=== PATIENT | male | born 1950 | race Caucasian/White ===

== ENCOUNTER 2024-09-16 15:59 | Inpatient (IN) | payer OTHER, SELFPAY ==
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
--- OUTSIDE RECORDS SUMMARY | 2024-09-16 16:08 | XMS_ITS | Clinical Summary ---
Author Organization [facility] Address [address] [place] [address] Care Team Providers Care Garment Form Assembler Name Role Phone No, Pcp PRESS MAINTAINER Primary Care Provider Unavailabl e Social History Tobacco Use Types Packs/Day Years Used Date Smoking Tobacco: Never Assessed Sex and Gender Information Value Date Recorded Sex Assigned at Not on file Legal Sex Male 11:33 AM EST Gender Identity Not on file Sexual Orientation Not on file Plan of Treatment Health Maintenance Due Date Last Done Comments Colorectal Cancer: COLONOSCO PY Screening every 10 yrs (or Modifier) 1950 Depression: Screening Annual ly using PHQ-2/9 in Adults 18 yrs or above (or HM Modifier)([facility]) 1970 Hepatitis C Virus Infection in Adolescents and Adults: Screening (or Modifier) ([facility]) 1970 [facility] Screening Reminder: Daphne sepulveda for all adults ([facility]) 1970 Tobacco Smoking Cessation: i n Adults excluding Women: Behavioral and Pharmacotherapy Interventions ([facility]) 1970 DTaP/Tdap/Td Vaccines ([facility]) (1 - Tdap) 05/03/1971 Colorectal Cancer Screening 45 -75 Yrs (or HM Modifier ) 1997 Colorectal Cancer: FLEXIBLE SIGMOIDOSCOPY Screening every 5 yrs 1997 Colorectal Cancer: Fecal Imm unochemical Test (FIT) Annually [facility] 1997 Colorectal Cancer: High-sens itivity gFOBT Screening Annually [facility] 1997 Colorectal Cancer: Stool Col oguard Screening every 3 yrs 1997 Colorectal Cancer:CT Colonography Screening every 5 yr s 1997 Pneumococcal Vaccination Scr eening: Patients 50+ yrs of age ([facility]) (1 of 1 - PCV) 2002 Zoster/Shingles Vaccine Seri es Screening: Adults aged 18+ yrs (or HM Modifiers)([facility]) (1 of 2) 2002 COVID-19 Vaccine Screening: Initial Series and Booster Status ([facility]) (2023- season) 2023 Flu Vaccination: Ages 65+: Y early High Dose Recommended (or Modifier)([facility]) 09/30/2024 RSV Vaccines (1 - 1-dose 75+ series) 05/03/2027 Medical Devices Not on file Care Teams Garment Form Assembler Relationship Specialty Start Date End Date No, Pcp, PRESS MAINTAINER N/A Do not use PCP - General Family Medicine 03/08/20
[2024-09-16 16:46] VITALS: BP 133/92; PULSE 76; RESP 16; TEMP 2.4; TEMP 36.4; O2SAT 94
[2024-09-16 16:53] VITALS: BMI 34.8
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
[2024-09-16 20:00] VITALS: BP 118/65; PULSE 76; RESP 18; TEMP 36.2; O2SAT 93
--- NOTE | 2024-09-16 23:14 | PC.NURSE ---
Pt declined HS medication, Edwar Skaggs ELECTRIC MOTOR CONTROL ASSEMBLER, notified. Offered and acceptyed Librium 25 mg at 11:15.
[2024-09-17] VITALS (7 sets, daily range): BP systolic 93–154; BP diastolic 52–80; PULSE 68–84; RESP 17–18; TEMP 36.5–36.6; O2SAT 92–96
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
[2024-09-17] MEDS: Metoprolol Succinate ER 25 MG TAB.ER.24H PO (12:40)
[2024-09-17] MEDS: Potassium Chloride ER 10 MEQ TABLET.ER PO (12:42)
[2024-09-18 07:55] VITALS: BP 114/62; PULSE 66; RESP 18; TEMP 37; O2SAT 95
[2024-09-18] MEDS: Potassium Chloride ER 10 MEQ TABLET.ER PO (08:14)
[2024-09-18] MEDS: Fluticasone/Vilanterol 200/25 BLST.W.DEV 1 PUFF INHALE (08:14)
[2024-09-18] MEDS: Metoprolol Succinate ER 25 MG TAB.ER.24H PO (08:14)
[2024-09-18] MEDS: Tiotropium Bromide 2.5 mcg 1 PUFF/2.5 MCG MIST.INHAL 2 PUFF INHALE (08:15)
[2024-09-18 12:39] LABS: Hemoglobin A1C 150.5159 umol/L; Total Hemoglobin (HGBA1C) 3814.3534 umol/L
[2024-09-18 12:54] LABS: Alanine Aminotransferase 43 U/L (0-40); Albumin Level 4.6 g/dL (3.5-5.0); Alkaline Phosphatase 85 U/L (39-117); Anion Gap 14 (12-20); Aspartate Amino Transferase 56 U/L (5-37); Blood Urea Nitrogen 21 mg/dL (9-16); Calcium 9.1 mg/dL (8.4-10.2); Carbon Dioxide 26 mmol/L (22-29); Chloride 107 mmol/L (96-108); Cholesterol 133 mg/dL (<200); Creatinine Clr Calc Pharmacy 81.6; Estimated Glomerular Filt Rate > 60; HDL Cholesterol 39 mg/dL (>40); Potassium 4.2 mmol/L (3.3-5.1); Sodium 143 mmol/L (135-145); Total Protein 6.9 g/dL (6.5-8.0); Triglycerides 131 mg/dL (<150)
[2024-09-18 13:08] LABS: Free T4 (Free Thyroxine) 1.11 ng/dL (0.71-1.85); Thyroid Stimulating Hormone 2.21 uIU/mL (0.32-4.0)
[2024-09-18] MEDS: Magnesium Hydrox/Alum Hydrox 30 ML ORAL.SUSP PO (13:17)
--- NOTE | 2024-09-18 13:29 | P.PNPSI_ITS ---
Subjective Subjective Date of Service: 09/18/24 Reason For Visit: F03.918 Unspecified dementia, unspecified severity Subjective Notes: Conditional Voluntary and 3 Day Healthcare Proxy: No Guardianship: No Medical Problems Affecting Mental Status: No Interim History: Pt seen, discussed with team. Calmer today, team reports a better day overall. When he awoke this a.m. he did have sx of confusion and did attempt to exit seek, however, responded to the team and their support. Pt is accepting medications and did agree to labs today. He is supported by by phone today. Confusion is still present-pt asking to leave today. Team report no behavioral dyscontrol and no symptoms of alcohol withdrawal noted. Medication Compliance: Yes Side effects from medications: No Attending Groups: Intermittent Review of Systems Acute medical concerns: No Review of Systems Review of Systems Denies Yes Unobtainable due to mental status Mental Status Exam Mental Status Exam Patient Appearance: Appropriate Patient Orientation: Person Level of Consciousness: Disoriented and Alert Patient Behavior: Talkative, Anxious, Fatigued, Distractible, Confused, Isolative and Good Eye Contact Mood Description: Constricted Affect Description: Constricted Patient Cognition Impaired: Yes Ability to Follow Directions: Fair Speech Pattern: Spontaneous Speech Memory Description: Remote Impaired, Recent Impaired and Working Impaired Hallucinations: None Delusions: Present (less intense) Thought Process: Disoriented, Illogical, Distracted and Confusion Thought Content: positive for Disoriented, positive for Circumstantial, positive for Poverty of Content, positive for Preoccupation, positive for Slowed Thinking, positive for Tangential, positive for Disorganized and positive for Suicidal Ideation (today, pt denies SI) Depressive Symptoms: Unhappiness, Thoughts of /Suicide (denies today), Loss of Energy and Difficulty Concentrating Abnormal Motor Activity Signs and Symptoms: Agitation and Restlessness Judgement: Poor Diagnostics Vital Signs (24Hr): Vital Signs - 24 hr 09/17/24 20:20 09/17/24 20:31 09/18/24 07:55 Temperature 97.9 F 98.6 F Pulse Rate 71 66 Respiratory Rate 17 18 Blood Pressure 93/52 L 93/52 L 114/62 Pulse Oximetry 92 95 Oxygen Delivery Method Room Air Room Air BMI result Body Mass Index 34.8 Labs 09/18/24 12:26 Labs: Laboratory Results - last 48 hr 09/18/24 12:26 Sodium 143 Potassium 4.2 Chloride 107 Carbon Dioxide 26 Anion Gap 14 BUN 21 H Creatinine 1.14 Estim Creat Clear Calc 81.6 Estimated GFR > 60 Random Glucose 124 H Estimat Average Glucose 120 Hemoglobin A1c % 5.8 Calcium 9.1 Total Bilirubin 0.9 AST 56 H ALT 43 H Alkaline Phosphatase 85 Total Protein 6.9 Albumin 4.6 Triglycerides 131 Cholesterol 133 LDL Cholesterol, Calc 68 HDL Cholesterol 39 L TSH 2.21 Free T4 1.11 Medications Medications Current Medications Acetaminophen (Acetaminophen 325 Mg Tablet) 650 mg PO Q6H PRN PRN Reason: Headache/Pain, Scale 1-10 Al Hydroxide/Mg Hydroxide (Magnesium Hydrox/Alum Hydrox 30 Ml Oral.Susp) 30 ml PO Q6H PRN PRN Reason: Heartburn/Nausea Last Admin: 09/18/24 13:17 Dose: 30 ml Albuterol Sulfate (Albuterol Sulfate 90 Mcg 8 Gm Inhaler) 2 puff INHALE Q6H PRN PRN Reason: Wheezing Aspirin (Aspirin 81 Mg Tab.Chew) 81 mg PO DAILY [facility] Last Admin: 09/18/24 08:14 Dose: 81 mg Atorvastatin Calcium (Atorvastatin Calcium 80 Mg Tablet) 80 mg PO DAILY [facility] Last Admin: 09/18/24 08:13 Dose: 80 mg Chlordiazepoxide HCl (Chlordiazepoxide Hcl 25 Mg Capsule) 25 mg PO QID PRN PRN Reason: For Alcohol W/D Last Admin: 09/17/24 12:37 Dose: 25 mg Doxazosin Mesylate (Doxazosin Mesylate 2 Mg Tablet) 2 mg PO BEDTIME [facility] Last Admin: 09/17/24 20:31 Dose: Not Given Ezetimibe (Ezetimibe 10 Mg Tablet) 10 mg PO DAILY [facility] Last Admin: 09/18/24 08:21 Dose: 10 mg Fluticasone/Vilanterol (Fluticasone/Vilanterol 200/25 Blst.W.Dev) 1 puff INHALE RDAILY [facility] Last Admin: 09/18/24 08:14 Dose: 1 puff Folic Acid (Folic Acid 1 Mg Tablet) 1 mg PO DAILY [facility] Last Admin: 09/18/24 08:14 Dose: 1 mg Furosemide (Furosemide 40 Mg Tablet) 40 mg PO DAILY [facility]; Protocol Last Admin: 09/18/24 08:14 Dose: 40 mg Hydroxyzine HCl (Hydroxyzine Hcl 25 Mg Tablet) 25 mg PO Q6H PRN PRN Reason: mild anxiety Isosorbide Mononitrate (Isosorbide Mononitrate 30 Mg Tab.Er.24h) 30 mg PO DAILY [facility]; Protocol Last Admin: 09/18/24 08:13 Dose: 30 mg Levothyroxine Sodium (Levothyroxine Sodium 175 Mcg Tablet) 175 mcg PO DAILY@0600 [facility] Last Admin: 09/18/24 04:55 Dose: 175 mcg Lidocaine (Lidocaine 4 % Patch Adh..Patch) 1 patch TRANSDERMA DAILY PRN PRN Reason: Pain Magnesium Hydroxide (Milk Of Magnesia 30 Ml Oral.Susp) 30 ml PO DAILY PRN PRN Reason: Constipation Metoprolol Succinate (Metoprolol Succinate Er 25 Mg Tab.Er.24h) 25 mg PO DAILY [facility]; Protocol Last Admin: 09/18/24 08:14 Dose: 25 mg Montelukast Sodium (Montelukast Sodium 10 Mg Tablet) 10 mg PO BEDTIME [facility] Last Admin: 09/17/24 20:26 Dose: 10 mg Multivitamins/Vitamin C (Multivitamin Tablet) 1 tab PO DAILY [facility] Last Admin: 09/18/24 08:14 Dose: 1 tab Naproxen (Naproxen 500 Mg Tablet) 500 mg PO BID [facility] Last Admin: 09/18/24 08:14 Dose: 500 mg Olanzapine (Olanzapine 5 Mg Tablet) 5 mg PO BID PRN PRN Reason: agitation Omeprazole (Omeprazole 20 Mg Capsule.Dr) 20 mg PO DAILY@0630 [facility] Last Admin: 09/18/24 05:53 Dose: 20 mg Potassium Chloride (Potassium Chloride Er 10 Meq Tablet.Er) 10 meq PO DAILY [facility] Last Admin: 09/18/24 08:14 Dose: 10 meq Ranolazine (Ranolazine 500 Mg Tab.Er.12h) 500 mg PO BID [facility] Last Admin: 09/18/24 08:14 Dose: 500 mg Thiamine HCl (Thiamine Hcl 100 Mg Tablet) 100 mg PO DAILY [facility] Last Admin: 09/18/24 08:13 Dose: 100 mg Tiotropium [place] [facility] (Tiotropium [place] [facility] 2.5 Mcg 1 Puff/2.5 Mcg Mist.Inhal) 2 puff INHALE RDAILY [facility] Last Admin: 09/18/24 08:15 Dose: 2 puff Trazodone HCl (Trazodone Hcl 50 Mg Tablet) 50 mg PO BEDTIME [facility] PRN PRN Reason: Insomnia Last Admin: 09/17/24 20:26 Dose: 50 mg Vitamin D (Cholecalciferol (Vitamin D3) 25 Mcg Tablet) 25 mcg PO DAILY [facility] Last Admin: 09/18/24 08:14 Dose: 25 mcg Allergies Allergies Allergy/AdvReac Type Severity Reaction Status Date / Time lisinopril Allergy Unknown Verified 09/16/24 17:09 lorazepam Allergy Unknown Verified 09/16/24 17:09 Penicillins Allergy Unknown Verified 09/16/24 17:09 tizanidine Allergy Unknown Verified 09/16/24 17:09 Assessment & Plan Assessment & Plan (1) Lewy body dementia: Status: Acute Code(s): G31.83 - Neurocognitive disorder with Lewy bodies; F02.80 - Dementia in other diseases classified elsewhere, unspecified severity, without behavioral disturbance, psychotic disturbance, mood disturbance, and anxiety (2) Alcohol use disorder: Status: Acute Code(s): F10.90 - Alcohol use, unspecified, uncomplicated (3) Anxiety: Status: Acute Code(s): F41.9 - Anxiety disorder, unspecified Plan Admit, CV, TDN filed, 5 minute checks Librium detox protocol MVI, Folic Acid, Thiamine. Collateral Contact, Dr. Salamanca of [facility] [phone] Continue regime Pt refuses all diagnostics at this time. 09/18: Accepting medications and diagnostics Continue treatment Reason for continued inpatient stay Substantial Risk for: rapid decompensation and med/psych decompensation Time Spent With Patient Time: Total time managing care of this patient today ____ minutes.
[2024-09-18 20:00] VITALS: BP 107/57; PULSE 64; RESP 16; TEMP 36.7; O2SAT 91
[2024-09-18 20:15] VITALS: BP 107/57
[2024-09-19] VITALS (7 sets, daily range): BP systolic 116–137; BP diastolic 67–81; PULSE 62–88; RESP 17–18; TEMP 36.2–36.4; O2SAT 92–93
--- NOTE | 2024-09-19 08:51 | P.PNPSI_ITS ---
Subjective Subjective Date of Service: 09/19/24 Reason For Visit: F03.918 Unspecified dementia, unspecified severity Subjective Notes: Conditional Voluntary and 3 Day Interim History: Pt slept through the night and presented very somnolent during the morning. He was up mid afternoon. He declined medications for unclear reason. He reported he was waiting for his . He does not remember month nor year. He does not know where he is nor why he is here. He thinks he awaiting for his to go home. He does not remember where his house is. He does remember he lives with his . His speech noted to have dysarthria. May also have some expressive aphasia as well. He denies depression or SI. No complications in terms of alcohol withdrawal. Will d/c ciwa and librium. Collateral information gathered from , Velvet ([phone]). Velvet reports pt has been presenting with problems with orientation including not knowing month, year, or situation or place for over one year. She reports at times he does not recognizes her and this happens often at different times of the day. They have been together for 44 years. He did not have any alcohol issues (did drink socially) however, has been drinking more often in past 6 months. Medication Compliance: Intermittent Mental Status Exam Mental Status Exam Narrative: Appearance: wearing casual clothing, good hygiene, in NAD Behavior: cooperative Psychomotor: no noted tremors, no agitation or retardation noted Speech: with dysarthria, regular rate, low volume, spontaneous TP: disorganized, difficult to follow at times TC: wanting for Mood: okay Affect: congruent SI: denies HI: denies VH/AH: no overt signs Delusions: no overt delusional content Insight/judgment: impaired x 2. Memory/cog: alert, not oriented to place, month, year nor situation. pending MOCA/ ACL. Diagnostics Vital Signs (24Hr): Vital Signs - 24 hr 09/18/24 20:00 09/18/24 20:15 Temperature 98.1 F Pulse Rate 64 Respiratory Rate 16 Blood Pressure 107/57 L 107/57 L Pulse Oximetry 91 L Oxygen Delivery Method Room Air BMI result Body Mass Index 34.8 Labs 09/18/24 12:26 Labs: Laboratory Results - last 48 hr 09/18/24 12:26 Sodium 143 Potassium 4.2 Chloride 107 Carbon Dioxide 26 Anion Gap 14 BUN 21 H Creatinine 1.14 Estim Creat Clear Calc 81.6 Estimated GFR > 60 Random Glucose 124 H Estimat Average Glucose 120 Hemoglobin A1c % 5.8 Calcium 9.1 Total Bilirubin 0.9 AST 56 H ALT 43 H Alkaline Phosphatase 85 Total Protein 6.9 Albumin 4.6 Triglycerides 131 Cholesterol 133 LDL Cholesterol, Calc 68 HDL Cholesterol 39 L TSH 2.21 Free T4 1.11 Medications Medications Current Medications Acetaminophen (Acetaminophen 325 Mg Tablet) 650 mg PO Q6H PRN PRN Reason: Headache/Pain, Scale 1-10 Al Hydroxide/Mg Hydroxide (Magnesium Hydrox/Alum Hydrox 30 Ml Oral.Susp) 30 ml PO Q6H PRN PRN Reason: Heartburn/Nausea Last Admin: 09/18/24 13:17 Dose: 30 ml Albuterol Sulfate (Albuterol Sulfate 90 Mcg 8 Gm Inhaler) 2 puff INHALE Q6H PRN PRN Reason: Wheezing Aspirin (Aspirin 81 Mg Tab.Chew) 81 mg PO DAILY [facility] Last Admin: 09/18/24 08:14 Dose: 81 mg Atorvastatin Calcium (Atorvastatin Calcium 80 Mg Tablet) 80 mg PO DAILY [facility] Last Admin: 09/18/24 08:13 Dose: 80 mg Chlordiazepoxide HCl (Chlordiazepoxide Hcl 25 Mg Capsule) 25 mg PO QID PRN PRN Reason: For Alcohol W/D Last Admin: 09/17/24 12:37 Dose: 25 mg Doxazosin Mesylate (Doxazosin Mesylate 2 Mg Tablet) 2 mg PO BEDTIME [facility] Last Admin: 09/18/24 20:15 Dose: 2 mg Ezetimibe (Ezetimibe 10 Mg Tablet) 10 mg PO DAILY [facility] Last Admin: 09/18/24 08:21 Dose: 10 mg Fluticasone/Vilanterol (Fluticasone/Vilanterol 200/25 Blst.W.Dev) 1 puff INHALE RDAILY [facility] Last Admin: 09/18/24 08:14 Dose: 1 puff Folic Acid (Folic Acid 1 Mg Tablet) 1 mg PO DAILY [facility] Last Admin: 09/18/24 08:14 Dose: 1 mg Furosemide (Furosemide 40 Mg Tablet) 40 mg PO DAILY [facility]; Protocol Last Admin: 09/18/24 08:14 Dose: 40 mg Hydroxyzine HCl (Hydroxyzine Hcl 25 Mg Tablet) 25 mg PO Q6H PRN PRN Reason: mild anxiety Last Admin: 09/18/24 17:08 Dose: 25 mg Isosorbide Mononitrate (Isosorbide Mononitrate 30 Mg Tab.Er.24h) 30 mg PO DAILY [facility]; Protocol Last Admin: 09/18/24 08:13 Dose: 30 mg Levothyroxine Sodium (Levothyroxine Sodium 175 Mcg Tablet) 175 mcg PO DAILY@0600 [facility] Last Admin: 09/19/24 05:23 Dose: 175 mcg Lidocaine (Lidocaine 4 % Patch Adh..Patch) 1 patch TRANSDERMA DAILY PRN PRN Reason: Pain Magnesium Hydroxide (Milk Of Magnesia 30 Ml Oral.Susp) 30 ml PO DAILY PRN PRN Reason: Constipation Metoprolol Succinate (Metoprolol Succinate Er 25 Mg Tab.Er.24h) 25 mg PO DAILY [facility]; Protocol Last Admin: 09/18/24 08:14 Dose: 25 mg Montelukast Sodium (Montelukast Sodium 10 Mg Tablet) 10 mg PO BEDTIME [facility] Last Admin: 09/18/24 20:16 Dose: 10 mg Multivitamins/Vitamin C (Multivitamin Tablet) 1 tab PO DAILY [facility] Last Admin: 09/18/24 08:14 Dose: 1 tab Naproxen (Naproxen 500 Mg Tablet) 500 mg PO BID [facility] Last Admin: 09/18/24 20:14 Dose: 500 mg Olanzapine (Olanzapine 5 Mg Tablet) 5 mg PO BID PRN PRN Reason: agitation Last Admin: 09/18/24 20:14 Dose: 5 mg Omeprazole (Omeprazole 20 Mg Capsule.Dr) 20 mg PO DAILY@0630 [facility] Last Admin: 09/19/24 05:57 Dose: 20 mg Potassium Chloride (Potassium Chloride Er 10 Meq Tablet.Er) 10 meq PO DAILY [facility] Last Admin: 09/18/24 08:14 Dose: 10 meq Ranolazine (Ranolazine 500 Mg Tab.Er.12h) 500 mg PO BID [facility] Last Admin: 09/18/24 20:15 Dose: 500 mg Thiamine HCl (Thiamine Hcl 100 Mg Tablet) 100 mg PO DAILY [facility] Last Admin: 09/18/24 08:13 Dose: 100 mg Tiotropium Stout (Tiotropium Stout 2.5 Mcg 1 Puff/2.5 Mcg Mist.Inhal) 2 puff INHALE RDAILY [facility] Last Admin: 09/18/24 08:15 Dose: 2 puff Trazodone HCl (Trazodone Hcl 50 Mg Tablet) 50 mg PO BEDTIME MRX1 PRN PRN Reason: Insomnia Last Admin: 09/17/24 20:26 Dose: 50 mg Vitamin D (Cholecalciferol (Vitamin D3) 25 Mcg Tablet) 25 mcg PO DAILY [facility] Last Admin: 09/18/24 08:14 Dose: 25 mcg Allergies Allergies Allergy/AdvReac Type Severity Reaction Status Date / Time lisinopril Allergy Unknown Verified 09/16/24 17:09 lorazepam Allergy Unknown Verified 09/16/24 17:09 Penicillins Allergy Unknown Verified 09/16/24 17:09 tizanidine Allergy Unknown Verified 09/16/24 17:09 Assessment & Plan Assessment & Plan (1) Lewy body dementia: Status: Acute Code(s): G31.83 - Neurocognitive disorder with Lewy bodies; F02.80 - Dementia in other diseases classified elsewhere, unspecified severity, without behavioral disturbance, psychotic disturbance, mood disturbance, and anxiety Assessment and Plan: problems with orientation, recognition of family members, more severe amnestic type of impairment also raises question of other types of dementia such as AD. (2) Alcohol use disorder: Status: Acute Code(s): F10.90 - Alcohol use, unspecified, uncomplicated Assessment and Plan: this is relatively new issue. (3) Anxiety: Status: Acute Code(s): F41.9 - Anxiety disorder, unspecified Plan Mr. Garcia is a 74 year-old male with recent dx of lewy body dementia who drove to local police department and reported suicidal ideation with plan to crash into something. He was brought to [facility] ED. He presented with difficulty in orientation and denied any plan or intent to harm himself. Further collateral information from his , Velvet, reveled concern in terms of him wondering, driving (despite being told he is not able to do so due to memory/cognitive impairments) and increase alcohol intake in past 6 months. Pertienent labs completed in the ED include CBC without leukocytosis, no anemia, Plts 116. CMP without electrolyte abnormalities, BUN 17, Cr 1.09, creatinine clearance 67. BAL 51. Pending collateral information from Neurologist Dr. Salamanca of [facility] [phone] 09/19 pt not oriented to place, month,year nor situation. does not know how long he has been here nor why, showing more severe ability to retain new information. No overt psychosis noted so far. Pt does seem to be sensitive to effect of medications and receive trazodone and olanzapine which led to him sleeping most of the night and day. will lower dose of trazodone to 25mg po qhs prn, and olanzapine 2.5mg po BID for agitation. Obtained collateral information from . Pt does now have capacity to make medication decisions. It also appears cognitive/memory impairments to extend of needing 24/7 supervision. Discussed with , pt should not have access to car keys, not alcohol in the home. reports plan is for pt to return back home. Reason for continued inpatient stay Substantial Risk for: inability to function Time Spent With Patient Time: Total time managing care of this patient today ____ minutes.
--- NOTE | 2024-09-19 11:16 | PC.NURSE ---
Patient awake at 10:30, appeared sedated at AM. VSS, no s/s of distress. Provider Yamilka Cordero/IZAIAH notified and assessed the pt. Stated, to give meds when pt awake. New orders for orthostatic BP and labs. Pt is calm but not cooperative. Refused am meds despite multiple attempts. Accepted BP monitoring in sitting and standing position, refused supine position. Refused labs. Yamilka hinojosa.
[2024-09-20 08:00] VITALS: BP 101/55; PULSE 64; RESP 14; TEMP 2.7; TEMP 37; O2SAT 95
[2024-09-20] MEDS: Fluticasone/Vilanterol 200/25 BLST.W.DEV 1 PUFF INHALE (08:59)
[2024-09-20] MEDS: Tiotropium Bromide 2.5 mcg 1 PUFF/2.5 MCG MIST.INHAL 2 PUFF INHALE (08:59)
[2024-09-20] MEDS: Potassium Chloride ER 10 MEQ TABLET.ER PO (09:01)
[2024-09-20] MEDS: Metoprolol Succinate ER 25 MG TAB.ER.24H PO (09:13)
--- NOTE | 2024-09-20 15:02 | HO.HCP ---
Health Care Proxy Invocation Health Care Proxy Declaration: I, ____Miah Ramos MD , on the date cited below, have determined that, ___Clint Garcia , lacks the capacity to make or communicate, informed health care decision. This determination is made in accordance with accepted standards of medical judgment and pursuant to [place], the [facility] Care Proxy Law. The cause, nature, extent and probable duration of the patient's incapacity are described below: Cause: advanced dementia Nature: poor cognitive and memory function Extent: complete Probable Duration of Patient's Incapacity: permanent
--- NOTE | 2024-09-20 18:17 | HO.PSYCHPN ---
Subjective Subjective Date of Service: 09/20/24 Reason For Visit: F03.918 Unspecified dementia, unspecified severity Subjective Notes: Conditional Voluntary Healthcare Proxy: Yes Interim History: Pt slept through the night. He does not know where he is. Communication is difficult due to combination of dysartria and expressive aphasia. Family came for a visit. HCP has been invoked. HCP signed CV. No overt psychosis noted. No aggression. he is sensitive to effect of psychotropic meds- over sedation. noted action tremor as well. Medication Compliance: Intermittent Review of Systems Review of Systems Denies Yes Unobtainable due to mental status Mental Status Exam Mental Status Exam Narrative: Appearance: wearing casual clothing, good hygiene, in NAD Behavior: cooperative Psychomotor: bilat action tremor, no agitation or retardation noted Speech: mumbles, difficult to understand, with dysarthria, regular rate, low volume, spontaneous TP: disorganized, difficult to follow at times. expressive aphasia. TC: wanting for Mood: okay Affect: congruent SI: denies HI: denies VH/AH: no overt signs Delusions: no overt delusional content Insight/judgment: impaired x 2. Memory/cog: alert, not oriented to place, month, year nor situation. pending MOCA/ ACL. Patient Appearance: Appropriate Patient Orientation: Person Level of Consciousness: Disoriented and Alert Patient Behavior: Talkative, Anxious, Fatigued, Distractible, Confused, Isolative and Good Eye Contact Mood Description: Constricted Affect Description: Constricted Patient Cognition Impaired: Yes Ability to Follow Directions: Fair Speech Pattern: Spontaneous Speech Memory Description: Remote Impaired, Recent Impaired and Working Impaired Diagnostics Vital Signs (24Hr): Vital Signs - 24 hr 09/19/24 20:00 09/19/24 20:27 09/20/24 08:00 Temperature 97.6 F 37 F L Pulse Rate 88 64 Respiratory Rate 18 14 Blood Pressure 116/72 131/70 101/55 L Pulse Oximetry 92 95 Oxygen Delivery Method Room Air Room Air BMI result Body Mass Index 34.8 Labs 09/21/24 08:50 09/21/24 08:50 Medications Medications Current Medications Acetaminophen (Acetaminophen 325 Mg Tablet) 650 mg PO Q6H PRN PRN Reason: Headache/Pain, Scale 1-10 Al Hydroxide/Mg Hydroxide (Magnesium Hydrox/Alum Hydrox 30 Ml Oral.Susp) 30 ml PO Q6H PRN PRN Reason: Heartburn/Nausea Last Admin: 09/18/24 13:17 Dose: 30 ml Albuterol Sulfate (Albuterol Sulfate 90 Mcg 8 Gm Inhaler) 2 puff INHALE Q6H PRN PRN Reason: Wheezing Aspirin (Aspirin 81 Mg Tab.Chew) 81 mg PO DAILY [facility] Last Admin: 09/20/24 09:03 Dose: 81 mg Atorvastatin Calcium (Atorvastatin Calcium 80 Mg Tablet) 80 mg PO DAILY [facility] Last Admin: 09/20/24 09:02 Dose: 80 mg Doxazosin Mesylate (Doxazosin Mesylate 2 Mg Tablet) 2 mg PO BEDTIME [facility] Last Admin: 09/19/24 20:27 Dose: 2 mg Ezetimibe (Ezetimibe 10 Mg Tablet) 10 mg PO DAILY [facility] Last Admin: 09/20/24 09:02 Dose: 10 mg Fluticasone/Vilanterol (Fluticasone/Vilanterol 200/25 Blst.W.Dev) 1 puff INHALE RDAILY [facility] Last Admin: 09/20/24 08:59 Dose: 1 puff Folic Acid (Folic Acid 1 Mg Tablet) 1 mg PO DAILY [facility] Last Admin: 09/20/24 09:13 Dose: 1 mg Furosemide (Furosemide 40 Mg Tablet) 40 mg PO DAILY [facility]; Protocol Last Admin: 09/19/24 11:58 Dose: Not Given Isosorbide Mononitrate (Isosorbide Mononitrate 30 Mg Tab.Er.24h) 30 mg PO DAILY [facility]; Protocol Last Admin: 09/19/24 11:59 Dose: Not Given Levothyroxine Sodium (Levothyroxine Sodium 175 Mcg Tablet) 175 mcg PO DAILY@0600 [facility] Last Admin: 09/20/24 06:03 Dose: 175 mcg Lidocaine (Lidocaine 4 % Patch Adh..Patch) 1 patch TRANSDERMA DAILY PRN PRN Reason: Pain Magnesium Hydroxide (Milk Of Magnesia 30 Ml Oral.Susp) 30 ml PO DAILY PRN PRN Reason: Constipation Metoprolol Succinate (Metoprolol Succinate Er 25 Mg Tab.Er.24h) 25 mg PO DAILY [facility]; Protocol Last Admin: 09/20/24 09:13 Dose: 25 mg Montelukast Sodium (Montelukast Sodium 10 Mg Tablet) 10 mg PO BEDTIME [facility] Last Admin: 09/19/24 20:27 Dose: 10 mg Multivitamins/Vitamin C (Multivitamin Tablet) 1 tab PO DAILY [facility] Last Admin: 09/20/24 09:02 Dose: 1 tab Naproxen (Naproxen 500 Mg Tablet) 500 mg PO BID [facility] Last Admin: 09/20/24 09:01 Dose: 500 mg Olanzapine (Olanzapine 2.5 Mg Tablet) 2.5 mg PO BID PRN PRN Reason: agitation Omeprazole (Omeprazole 20 Mg Capsule.Dr) 20 mg PO DAILY@0630 [facility] Last Admin: 09/20/24 06:04 Dose: 20 mg Potassium Chloride (Potassium Chloride Er 10 Meq Tablet.Er) 10 meq PO DAILY [facility] Last Admin: 09/20/24 09:01 Dose: 10 meq Ranolazine (Ranolazine 500 Mg Tab.Er.12h) 500 mg PO BID [facility] Last Admin: 09/20/24 09:01 Dose: 500 mg Thiamine HCl (Thiamine Hcl 100 Mg Tablet) 100 mg PO DAILY [facility] Last Admin: 09/20/24 09:02 Dose: 100 mg Tiotropium [place] (Tiotropium [place] 2.5 Mcg 1 Puff/2.5 Mcg Mist.Inhal) 2 puff INHALE RDAILY [facility] Last Admin: 09/20/24 08:59 Dose: 2 puff Trazodone HCl (Trazodone Hcl 25 Mg Halftab) 25 mg PO BEDTIME PRN PRN Reason: Insomnia Vitamin D (Cholecalciferol (Vitamin D3) 25 Mcg Tablet) 25 mcg PO DAILY [facility] Last Admin: 09/20/24 09:03 Dose: 25 mcg Allergies Allergies Allergy/AdvReac Type Severity Reaction Status Date / Time lisinopril Allergy Unknown Verified 09/16/24 17:09 lorazepam Allergy Unknown Verified 09/16/24 17:09 Penicillins Allergy Unknown Verified 09/16/24 17:09 tizanidine Allergy Unknown Verified 09/16/24 17:09 Assessment & Plan Assessment & Plan (1) Lewy body dementia: Status: Acute Code(s): G31.83 - Neurocognitive disorder with Lewy bodies; F02.80 - Dementia in other diseases classified elsewhere, unspecified severity, without behavioral disturbance, psychotic disturbance, mood disturbance, and anxiety Assessment and Plan: problems with orientation, recognition of family members, more severe amnestic type of impairment also raises question of other types of dementia such as AD. (2) Alcohol use disorder: Status: Acute Code(s): F10.90 - Alcohol use, unspecified, uncomplicated Assessment and Plan: this is relatively new issue. (3) Anxiety: Status: Acute Code(s): F41.9 - Anxiety disorder, unspecified Plan Mr. Garcia is a 74 year-old male with recent dx of lewy body dementia who drove to local police department and reported suicidal ideation with plan to crash into something. He was brought to [facility] ED. He presented with difficulty in orientation and denied any plan or intent to harm himself. Further collateral information from his , Velvet, reveled concern in terms of him wondering, driving (despite being told he is not able to do so due to memory/cognitive impairments) and increase alcohol intake in past 6 months. Pertienent labs completed in the ED include CBC without leukocytosis, no anemia, Plts 116. CMP without electrolyte abnormalities, BUN 17, Cr 1.09, creatinine clearance 67. BAL 51. Pending collateral information from Neurologist Dr. Salamanca of [facility] [phone] 09/19 pt not oriented to place, month,year nor situation. does not know how long he has been here nor why, showing more severe ability to retain new information. No overt psychosis noted so far. Pt does seem to be sensitive to effect of medications and receive trazodone and olanzapine which led to him sleeping most of the night and day. will lower dose of trazodone to 25mg po qhs prn, and olanzapine 2.5mg po BID for agitation. Obtained collateral information from . Pt does now have capacity to make medication decisions. It also appears cognitive/memory impairments to extend of needing 24/7 supervision. Discussed with , pt should not have access to car keys, not alcohol in the home. reports plan is for pt to return back home. 09/20 continue tx. can try aricept low dose. Reason for continued inpatient stay Substantial Risk for: inability to function Time Spent With Patient Time: Total time managing care of this patient today ____ minutes.
[2024-09-20 20:00] VITALS: BP 115/60; PULSE 68; RESP 18; TEMP 36.3; O2SAT 94
[2024-09-20] MEDS: traZODone HCL 25 MG HALFTAB PO (20:07)
[2024-09-21 08:23] VITALS: BP 129/58; PULSE 65; RESP 16; TEMP 36.3; O2SAT 90
[2024-09-21] MEDS: Tiotropium Bromide 2.5 mcg 1 PUFF/2.5 MCG MIST.INHAL 2 PUFF INHALE (09:06)
[2024-09-21] MEDS: Fluticasone/Vilanterol 200/25 BLST.W.DEV 1 PUFF INHALE (09:06)
[2024-09-21] MEDS: Potassium Chloride ER 10 MEQ TABLET.ER PO (09:07)
[2024-09-21] MEDS: Metoprolol Succinate ER 25 MG TAB.ER.24H PO (09:08)
[2024-09-21 09:15] LABS: MANUAL DIFF FLAG NO
[2024-09-21 09:43] LABS: Hematocrit 44.8 % (42.0-52.0); Hemoglobin 15.5 g/dl (14.0-18.0); Imm Gran Abs Auto 0.01 X10*3/uL (0.00-0.03); Imm Gran Pct Auto 0.2 % (0.0-0.4); Lymphocytes Absolute Auto 1.2 X10*3/uL (1.2-4.9); Mean Corpuscular HGB Conc 34.6 g/dl (31.0-36.0); Mean Corpuscular Hemoglobin 32.7 pg (27.0-33.0); Mean Corpuscular Volume 94.5 fL (80.0-98.0); NRBC Abs Auto 0.000 X10*3/uL (0.0-0.012); NRBC Pct Auto 0.0 /100WBC (0.0-0.2); Platelet Count 112 X10*3/uL (160-400); Red Blood Count 4.74 X10*6/uL (4.60-5.80); White Blood Count 6.3 X10*3/uL (4.8-10.8)
[2024-09-21 09:51] LABS: Alanine Aminotransferase 38 U/L (0-40); Albumin Level 4.7 g/dL (3.5-5.0); Alkaline Phosphatase 84 U/L (39-117); Anion Gap 13 (12-20); Aspartate Amino Transferase 44 U/L (5-37); Blood Urea Nitrogen 27 mg/dL (9-16); Calcium 9.1 mg/dL (8.4-10.2); Carbon Dioxide 25 mmol/L (22-29); Chloride 109 mmol/L (96-108); Creatinine Clr Calc Pharmacy 99.0; Estimated Glomerular Filt Rate > 60; Potassium 4.3 mmol/L (3.3-5.1); Sodium 143 mmol/L (135-145); Total Protein 7.3 g/dL (6.5-8.0)
[2024-09-21 10:06] VITALS: PULSE 62; O2SAT 92
[2024-09-21 11:50] VITALS: PULSE 74; O2SAT 97
--- NOTE | 2024-09-21 14:41 | P.PNPSI_ITS ---
Subjective Subjective Date of Service: 09/21/24 Reason For Visit: F03.918 Unspecified dementia, unspecified severity Subjective Notes: Conditional Voluntary Healthcare Proxy: Yes Interim History: Pt slept through the night. He has been visible on the unit. Not oriented to place, month or situation. No aggression towards self or others. He is taking medications as prescribed. Medication Compliance: Yes Side effects from medications: No Review of Systems Review of Systems Denies Yes Unobtainable due to mental status Mental Status Exam Mental Status Exam Narrative: Appearance: wearing casual clothing, good hygiene, in NAD Behavior: cooperative Psychomotor: bilat action tremor, no agitation or retardation noted Speech: mumbles, difficult to understand, with dysarthria, regular rate, low volume, spontaneous TP: disorganized, difficult to follow at times. expressive aphasia. TC: wanting for Mood: okay Affect: congruent SI: denies HI: denies VH/AH: no overt signs Delusions: no overt delusional content Insight/judgment: impaired x 2. Memory/cog: alert, not oriented to place, month, year nor situation. pending MOCA/ ACL. Diagnostics Vital Signs (24Hr): Vital Signs - 24 hr 09/20/24 20:00 09/21/24 08:23 09/21/24 10:06 Temperature 97.3 F 97.3 F Pulse Rate 68 65 62 Respiratory Rate 18 16 Blood Pressure 115/60 129/58 L Pulse Oximetry 94 90 L 92 Oxygen Delivery Method Room Air Room Air Room Air 09/21/24 11:50 Temperature Pulse Rate 74 Respiratory Rate Blood Pressure Pulse Oximetry 97 Oxygen Delivery Method Room Air BMI result Body Mass Index 34.8 Labs 09/21/24 08:50 09/21/24 08:50 Labs: Laboratory Results - last 48 hr 09/21/24 08:50 WBC 6.3 RBC 4.74 Hgb 15.5 Hct 44.8 MCV 94.5 MCH 32.7 MCHC 34.6 RDW 14.6 Plt Count 112 L MPV 11.4 Immature Gran % (Auto) 0.2 Neut % (Auto) 68.6 Lymph % (Auto) 18.7 L [place] % (Auto) 8.3 Eos % (Auto) 3.7 Baso % (Auto) 0.5 Lymph # (Auto) 1.2 [place] # (Auto) 0.5 Eos # (Auto) 0.2 Baso # (Auto) 0.0 Abs Immat Gran (auto) 0.01 Absolute Neuts (auto) 4.3 Absolute Nucleated RBC 0.000 Nucleated RBC % (auto) 0.0 Sodium 143 Potassium 4.3 Chloride 109 H Carbon Dioxide 25 Anion Gap 13 BUN 27 H Creatinine 0.94 Estim Creat Clear Calc 99.0 Estimated GFR > 60 Random Glucose 86 Calcium 9.1 Total Bilirubin 0.8 AST 44 H ALT 38 Alkaline Phosphatase 84 Total Protein 7.3 Albumin 4.7 Medications Medications Current Medications Acetaminophen (Acetaminophen 325 Mg Tablet) 650 mg PO Q6H PRN PRN Reason: Headache/Pain, Scale 1-10 Al Hydroxide/Mg Hydroxide (Magnesium Hydrox/Alum Hydrox 30 Ml Oral.Susp) 30 ml PO Q6H PRN PRN Reason: Heartburn/Nausea Last Admin: 09/18/24 13:17 Dose: 30 ml Albuterol Sulfate (Albuterol Sulfate 90 Mcg 8 Gm Inhaler) 2 puff INHALE Q6H PRN PRN Reason: Wheezing Aspirin (Aspirin 81 Mg Tab.Chew) 81 mg PO DAILY [facility] Last Admin: 09/21/24 09:07 Dose: 81 mg Atorvastatin Calcium (Atorvastatin Calcium 80 Mg Tablet) 80 mg PO DAILY [facility] Last Admin: 09/21/24 09:09 Dose: 80 mg Doxazosin Mesylate (Doxazosin Mesylate 2 Mg Tablet) 2 mg PO BEDTIME [facility] Last Admin: 09/20/24 20:10 Dose: 2 mg Ezetimibe (Ezetimibe 10 Mg Tablet) 10 mg PO DAILY [facility] Last Admin: 09/21/24 09:07 Dose: 10 mg Fluticasone/Vilanterol (Fluticasone/Vilanterol 200/25 Blst.W.Dev) 1 puff INHALE RDAILY [facility] Last Admin: 09/21/24 09:06 Dose: 1 puff Folic Acid (Folic Acid 1 Mg Tablet) 1 mg PO DAILY [facility] Last Admin: 09/21/24 09:08 Dose: 1 mg Furosemide (Furosemide 40 Mg Tablet) 40 mg PO DAILY [facility]; Protocol Last Admin: 09/21/24 09:07 Dose: 40 mg Isosorbide Mononitrate (Isosorbide Mononitrate 30 Mg Tab.Er.24h) 30 mg PO DAILY [facility]; Protocol Last Admin: 09/21/24 09:09 Dose: 30 mg Levothyroxine Sodium (Levothyroxine Sodium 175 Mcg Tablet) 175 mcg PO DAILY@0600 [facility] Last Admin: 09/21/24 05:53 Dose: 175 mcg Lidocaine (Lidocaine 4 % Patch Adh..Patch) 1 patch TRANSDERMA DAILY PRN PRN Reason: Pain Magnesium Hydroxide (Milk Of Magnesia 30 Ml Oral.Susp) 30 ml PO DAILY PRN PRN Reason: Constipation Metoprolol Succinate (Metoprolol Succinate Er 25 Mg Tab.Er.24h) 25 mg PO DAILY [facility]; Protocol Last Admin: 09/21/24 09:08 Dose: 25 mg Montelukast Sodium (Montelukast Sodium 10 Mg Tablet) 10 mg PO BEDTIME [facility] Last Admin: 09/20/24 20:06 Dose: 10 mg Multivitamins/Vitamin C (Multivitamin Tablet) 1 tab PO DAILY [facility] Last Admin: 09/21/24 09:09 Dose: 1 tab Naproxen (Naproxen 500 Mg Tablet) 500 mg PO BID [facility] Last Admin: 09/21/24 09:08 Dose: 500 mg Olanzapine (Olanzapine 2.5 Mg Tablet) 2.5 mg PO BID PRN PRN Reason: agitation Omeprazole (Omeprazole 20 Mg Capsule.Dr) 20 mg PO DAILY@0630 [facility] Last Admin: 09/21/24 07:16 Dose: Not Given Potassium Chloride (Potassium Chloride Er 10 Meq Tablet.Er) 10 meq PO DAILY [facility] Last Admin: 09/21/24 09:07 Dose: 10 meq Ranolazine (Ranolazine 500 Mg Tab.Er.12h) 500 mg PO BID [facility] Last Admin: 09/21/24 09:07 Dose: 500 mg Thiamine HCl (Thiamine Hcl 100 Mg Tablet) 100 mg PO DAILY [facility] Last Admin: 09/21/24 09:09 Dose: 100 mg Tiotropium [place] (Tiotropium [place] 2.5 Mcg 1 Puff/2.5 Mcg Mist.Inhal) 2 puff INHALE RDAILY [facility] Last Admin: 09/21/24 09:06 Dose: 2 puff Trazodone HCl (Trazodone Hcl 25 Mg Halftab) 25 mg PO BEDTIME PRN PRN Reason: Insomnia Last Admin: 09/20/24 20:07 Dose: 25 mg Vitamin D (Cholecalciferol (Vitamin D3) 25 Mcg Tablet) 25 mcg PO DAILY [facility] Last Admin: 09/21/24 09:08 Dose: 25 mcg Allergies Allergies Allergy/AdvReac Type Severity Reaction Status Date / Time lisinopril Allergy Unknown Verified 09/16/24 17:09 lorazepam Allergy Unknown Verified 09/16/24 17:09 Penicillins Allergy Unknown Verified 09/16/24 17:09 tizanidine Allergy Unknown Verified 09/16/24 17:09 Assessment & Plan Assessment & Plan (1) Lewy body dementia: Status: Acute Code(s): G31.83 - Neurocognitive disorder with Lewy bodies; F02.80 - Dementia in other diseases classified elsewhere, unspecified severity, without behavioral disturbance, psychotic disturbance, mood disturbance, and anxiety Assessment and Plan: problems with orientation, recognition of family members, more severe amnestic type of impairment also raises question of other types of dementia such as AD. (2) Alcohol use disorder: Status: Acute Code(s): F10.90 - Alcohol use, unspecified, uncomplicated Assessment and Plan: this is relatively new issue. (3) Anxiety: Status: Acute Code(s): F41.9 - Anxiety disorder, unspecified Plan Mr. Garcia is a 74 year-old male with recent dx of lewy body dementia who drove to local police department and reported suicidal ideation with plan to crash into something. He was brought to [facility] ED. He presented with difficulty in orientation and denied any plan or intent to harm himself. Further collateral information from his , Velvet, reveled concern in terms of him wondering, driving (despite being told he is not able to do so due to memory/cognitive impairments) and increase alcohol intake in past 6 months. Pertienent labs completed in the ED include CBC without leukocytosis, no anemia, Plts 116. CMP without electrolyte abnormalities, BUN 17, Cr 1.09, creatinine clearance 67. BAL 51. Pending collateral information from Neurologist Dr. Salamanca of [facility] [phone] 09/19 pt not oriented to place, month,year nor situation. does not know how long he has been here nor why, showing more severe ability to retain new information. No overt psychosis noted so far. Pt does seem to be sensitive to effect of medications and receive trazodone and olanzapine which led to him sleeping most of the night and day. will lower dose of trazodone to 25mg po qhs prn, and olanzapine 2.5mg po BID for agitation. Obtained collateral information from . Pt does now have capacity to make medication decisions. It also appears cognitive/memory impairments to extend of needing / supervision. Discussed with , pt should not have access to car keys, not alcohol in the home. reports plan is for pt to return back home. 09/20 continue tx. can try aricept low dose. 09/21 start aricept 5mg po qhs. Reason for continued inpatient stay Substantial Risk for: inability to function Time Spent With Patient Time: Total time managing care of this patient today ____ minutes.
[2024-09-21] MEDS: Magnesium Hydrox/Alum Hydrox 30 ML ORAL.SUSP PO (18:54)
[2024-09-21 20:00] VITALS: BP 118/60; PULSE 68; RESP 16; TEMP 37.1; O2SAT 93
[2024-09-21] MEDS: traZODone HCL 25 MG HALFTAB PO (20:15)
[2024-09-22 08:00] VITALS: BP 142/68; PULSE 82; RESP 16; TEMP 36.6; O2SAT 98
[2024-09-22 08:26] VITALS: BMI 33.7
[2024-09-22 10:00] VITALS: BP 148/75
[2024-09-22] MEDS: Tiotropium Bromide 2.5 mcg 1 PUFF/2.5 MCG MIST.INHAL 2 PUFF INHALE (10:00)
[2024-09-22] MEDS: Fluticasone/Vilanterol 200/25 BLST.W.DEV 1 PUFF INHALE (10:00)
[2024-09-22] MEDS: Potassium Chloride ER 10 MEQ TABLET.ER PO (10:01)
[2024-09-22 10:02] VITALS: BP 148/75; PULSE 64
[2024-09-22] MEDS: Metoprolol Succinate ER 25 MG TAB.ER.24H PO (10:02)
[2024-09-22] MEDS: Lidocaine 4 % Patch ADH..PATCH 1 PATCH TRANSDERMA (13:00)
[2024-09-22 20:00] VITALS: BP 105/68; PULSE 69; TEMP 37.1; O2SAT 95
[2024-09-22] MEDS: traZODone HCL 25 MG HALFTAB PO ×2 (20:08→21:14)
[2024-09-22 20:09] VITALS: BP 105/68
[2024-09-23 07:44] VITALS: BP 127/63; PULSE 65; RESP 16; TEMP 2.4; TEMP 36.4; O2SAT 96
[2024-09-23] MEDS: Metoprolol Succinate ER 25 MG TAB.ER.24H PO (07:46)
[2024-09-23] MEDS: Tiotropium Bromide 2.5 mcg 1 PUFF/2.5 MCG MIST.INHAL 2 PUFF INHALE (07:48)
[2024-09-23] MEDS: Potassium Chloride ER 10 MEQ TABLET.ER PO (08:31)
[2024-09-23] MEDS: Lidocaine 4 % Patch ADH..PATCH 1 PATCH TRANSDERMA (14:05)
[2024-09-23 20:00] VITALS: BP 127/70; PULSE 68; RESP 16; TEMP 36.8; O2SAT 97
[2024-09-23] MEDS: traZODone HCL 25 MG HALFTAB PO (20:29)
[2024-09-23 20:32] VITALS: BP 127/70
[2024-09-24 08:00] VITALS: BP 130/70; PULSE 68; RESP 16; TEMP 36.7; O2SAT 93
[2024-09-24] MEDS: Fluticasone/Vilanterol 200/25 BLST.W.DEV 1 PUFF INHALE (08:34)
[2024-09-24] MEDS: Tiotropium Bromide 2.5 mcg 1 PUFF/2.5 MCG MIST.INHAL 2 PUFF INHALE (08:34)
[2024-09-24] MEDS: Metoprolol Succinate ER 25 MG TAB.ER.24H PO (08:35)
[2024-09-24] MEDS: Potassium Chloride ER 10 MEQ TABLET.ER PO (08:37)
--- NOTE | 2024-09-24 16:34 | HO.PSYCHPN ---
Subjective Subjective Date of Service: 09/24/24 Reason For Visit: F03.918 Unspecified dementia, unspecified severity Interim History: Patient reports he is feeling fine. He mumbles when talking. Difficult to understand. Visible on the unit. No behavioral outbursts. Disoriented and confused. Review of Systems Review of Systems Denies Yes Unobtainable due to mental status Mental Status Exam Mental Status Exam Narrative: Appearance: wearing casual clothing, good hygiene, in NAD Behavior: cooperative Psychomotor: bilat action tremor, no agitation or retardation noted Speech: mumbles, difficult to understand, with dysarthria, regular rate, low volume, spontaneous TP: disorganized, difficult to follow at times. expressive aphasia. TC: wanting for Mood: okay Affect: congruent SI: denies HI: denies VH/AH: no overt signs Delusions: no overt delusional content Insight/judgment: impaired x 2. Memory/cog: alert, not oriented to place, month, year nor situation. pending MOCA/ ACL. Patient Appearance: Appropriate Patient Orientation: Person Level of Consciousness: Disoriented and Alert Patient Behavior: Talkative, Anxious, Fatigued, Distractible, Confused, Isolative and Good Eye Contact Mood Description: Constricted Affect Description: Constricted Patient Cognition Impaired: Yes Ability to Follow Directions: Fair Speech Pattern: Spontaneous Speech Memory Description: Remote Impaired, Recent Impaired and Working Impaired Diagnostics Vital Signs (24Hr): Vital Signs - 24 hr 09/23/24 20:00 09/23/24 20:32 09/24/24 08:00 Temperature 98.3 F 98.1 F Pulse Rate 68 68 Respiratory Rate 16 16 Blood Pressure 127/70 127/70 130/70 Pulse Oximetry 97 93 Oxygen Delivery Method Room Air Room Air BMI result Body Mass Index 33.7 Labs 09/21/24 08:50 09/21/24 08:50 Medications Medications Current Medications Acetaminophen (Acetaminophen 325 Mg Tablet) 650 mg PO Q6H PRN PRN Reason: Headache/Pain, Scale 1-10 Last Admin: 09/24/24 15:45 Dose: 650 mg Al Hydroxide/Mg Hydroxide (Magnesium Hydrox/Alum Hydrox 30 Ml Oral.Susp) 30 ml PO Q6H PRN PRN Reason: Heartburn/Nausea Last Admin: 09/21/24 18:54 Dose: 30 ml Albuterol Sulfate (Albuterol Sulfate 90 Mcg 8 Gm Inhaler) 2 puff INHALE Q6H PRN PRN Reason: Wheezing Aspirin (Aspirin 81 Mg Tab.Chew) 81 mg PO DAILY [facility] Last Admin: 09/24/24 08:37 Dose: 81 mg Atorvastatin Calcium (Atorvastatin Calcium 80 Mg Tablet) 80 mg PO DAILY [facility] Last Admin: 09/24/24 08:35 Dose: 80 mg Donepezil HCl (Donepezil Hcl 5 Mg Tablet) 5 mg PO BEDTIME [facility] Last Admin: 09/23/24 20:28 Dose: 5 mg Doxazosin Mesylate (Doxazosin Mesylate 2 Mg Tablet) 2 mg PO BEDTIME [facility] Last Admin: 09/23/24 20:32 Dose: 2 mg Ezetimibe (Ezetimibe 10 Mg Tablet) 10 mg PO DAILY [facility] Last Admin: 09/24/24 08:36 Dose: 10 mg Fluticasone/Vilanterol (Fluticasone/Vilanterol 200/25 Blst.W.Dev) 1 puff INHALE RDAILY [facility] Last Admin: 09/24/24 08:34 Dose: 1 puff Folic Acid (Folic Acid 1 Mg Tablet) 1 mg PO DAILY [facility] Last Admin: 09/24/24 08:36 Dose: 1 mg Furosemide (Furosemide 40 Mg Tablet) 40 mg PO DAILY [facility]; Protocol Last Admin: 09/24/24 08:35 Dose: 40 mg Isosorbide Mononitrate (Isosorbide Mononitrate 30 Mg Tab.Er.24h) 30 mg PO DAILY [facility]; Protocol Last Admin: 09/24/24 08:35 Dose: 30 mg Levothyroxine Sodium (Levothyroxine Sodium 175 Mcg Tablet) 175 mcg PO DAILY@0600 [facility] Last Admin: 09/24/24 05:54 Dose: 175 mcg Lidocaine (Lidocaine 4 % Patch Adh..Patch) 1 patch TRANSDERMA DAILY PRN PRN Reason: back pain Last Admin: 09/23/24 14:05 Dose: 1 patch Magnesium Hydroxide (Milk Of Magnesia 30 Ml Oral.Susp) 30 ml PO DAILY PRN PRN Reason: Constipation Metoprolol Succinate (Metoprolol Succinate Er 25 Mg Tab.Er.24h) 25 mg PO DAILY [facility]; Protocol Last Admin: 09/24/24 08:35 Dose: 25 mg Montelukast Sodium (Montelukast Sodium 10 Mg Tablet) 10 mg PO BEDTIME [facility] Last Admin: 09/23/24 20:28 Dose: 10 mg Multivitamins/Vitamin C (Multivitamin Tablet) 1 tab PO DAILY [facility] Last Admin: 09/24/24 08:35 Dose: 1 tab Naproxen (Naproxen 500 Mg Tablet) 500 mg PO BID [facility] Last Admin: 09/24/24 08:36 Dose: 500 mg Olanzapine (Olanzapine 2.5 Mg Tablet) 2.5 mg PO BID PRN PRN Reason: agitation Last Admin: 09/24/24 15:46 Dose: 2.5 mg Omeprazole (Omeprazole 20 Mg Capsule.Dr) 20 mg PO DAILY@0630 [facility] Last Admin: 09/24/24 06:32 Dose: 20 mg Potassium Chloride (Potassium Chloride Er 10 Meq Tablet.Er) 10 meq PO DAILY [facility] Last Admin: 09/24/24 08:37 Dose: 10 meq Ranolazine (Ranolazine 500 Mg Tab.Er.12h) 500 mg PO BID [facility] Last Admin: 09/24/24 08:35 Dose: 500 mg Risperidone (Risperidone 0.25 Mg Tablet) 0.25 mg PO BID [facility] Last Admin: 09/24/24 08:35 Dose: 0.25 mg Thiamine HCl (Thiamine Hcl 100 Mg Tablet) 100 mg PO DAILY [facility] Last Admin: 09/24/24 08:35 Dose: 100 mg Tiotropium [place] (Tiotropium [place] 2.5 Mcg 1 Puff/2.5 Mcg Mist.Inhal) 2 puff INHALE RDAILY [facility] Last Admin: 09/24/24 08:34 Dose: 2 puff Trazodone HCl (Trazodone Hcl 25 Mg Halftab) 25 mg PO BEDTIME PRN PRN Reason: Insomnia Last Admin: 09/23/24 20:29 Dose: 25 mg Vitamin D (Cholecalciferol (Vitamin D3) 25 Mcg Tablet) 25 mcg PO DAILY [facility] Last Admin: 09/24/24 08:37 Dose: 25 mcg Allergies Allergies Allergy/AdvReac Type Severity Reaction Status Date / Time lisinopril Allergy Unknown Verified 09/16/24 17:09 lorazepam Allergy Unknown Verified 09/16/24 17:09 Penicillins Allergy Unknown Verified 09/16/24 17:09 tizanidine Allergy Unknown Verified 09/16/24 17:09 Assessment & Plan Assessment & Plan (1) Lewy body dementia: Status: Acute Code(s): G31.83 - Neurocognitive disorder with Lewy bodies; F02.80 - Dementia in other diseases classified elsewhere, unspecified severity, without behavioral disturbance, psychotic disturbance, mood disturbance, and anxiety Assessment and Plan: problems with orientation, recognition of family members, more severe amnestic type of impairment also raises question of other types of dementia such as AD. (2) Alcohol use disorder: Status: Acute Code(s): F10.90 - Alcohol use, unspecified, uncomplicated Assessment and Plan: this is relatively new issue. (3) Anxiety: Status: Acute Code(s): F41.9 - Anxiety disorder, unspecified Plan Mr. Garcia is a 74 year-old male with recent dx of lewy body dementia who drove to local police department and reported suicidal ideation with plan to crash into something. He was brought to [facility] ED. He presented with difficulty in orientation and denied any plan or intent to harm himself. Further collateral information from his , Velvet, reveled concern in terms of him wondering, driving (despite being told he is not able to do so due to memory/cognitive impairments) and increase alcohol intake in past 6 months. Pertienent labs completed in the ED include CBC without leukocytosis, no anemia, Plts 116. CMP without electrolyte abnormalities, BUN 17, Cr 1.09, creatinine clearance 67. BAL 51. Pending collateral information from Neurologist Dr. Salamanca of [facility] [phone] 09/19 pt [address] oriented [address] place, month,year nor situation. does not know how long he has been here nor why, showing more severe ability to retain new information. No overt psychosis noted so far. Pt does seem to be sensitive to effect of medications and receive trazodone and olanzapine which led to him sleeping most of the night and day. will lower dose of trazodone to 25mg po qhs prn, and olanzapine 2.5mg po BID for agitation. Obtained collateral information from . Pt does now have capacity to make medication decisions. It also appears cognitive/memory impairments to extend of needing 24/7 supervision. Discussed with , pt should not have access to car keys, not alcohol in the home. reports plan is for pt to return back home. 09/20 continue tx. can try aricept low dose. 09/21 start aricept 5mg po qhs. 09/24: Continue current management and treatment plan. Reason for continued inpatient stay Substantial Risk for: inability to function, rapid decompensation and med/psych decompensation Time Spent With Patient Time: Total time managing care of this patient today ____ minutes.
[2024-09-24 19:52] VITALS: BP 169/94; PULSE 76; RESP 18; TEMP 36.2; O2SAT 99
[2024-09-24] MEDS: traZODone HCL 25 MG HALFTAB PO ×2 (20:12→22:37)
[2024-09-25 08:00] VITALS: BP 114/67; PULSE 65; RESP 14; TEMP 2.6; TEMP 36.7; O2SAT 95
[2024-09-25] MEDS: Metoprolol Succinate ER 25 MG TAB.ER.24H PO (08:31)
[2024-09-25] MEDS: Potassium Chloride ER 10 MEQ TABLET.ER PO (08:32)
[2024-09-25] MEDS: Tiotropium Bromide 2.5 mcg 1 PUFF/2.5 MCG MIST.INHAL 2 PUFF INHALE (08:35)
[2024-09-25] MEDS: Fluticasone/Vilanterol 200/25 BLST.W.DEV 1 PUFF INHALE (09:39)
--- NOTE | 2024-09-25 16:07 | P.PNPSI_ITS ---
Subjective Subjective Date of Service: 09/25/24 Reason For Visit: F03.918 Unspecified dementia, unspecified severity Interim History: Patient reports he is feeling fine. He reports hip pain that resulted from his work with a machine that fell on him. When asked when that happened, he said on the way here . Visible on the unit. No behavioral outbursts. Disoriented and confused. Review of Systems Review of Systems Denies Yes Unobtainable due to mental status Mental Status Exam Mental Status Exam Narrative: Appearance: wearing casual clothing, good hygiene, in NAD Behavior: cooperative Psychomotor: bilat action tremor, no agitation or retardation noted Speech: mumbles, difficult to understand, with dysarthria, regular rate, low volume, spontaneous TP: disorganized, difficult to follow at times. expressive aphasia. TC: wanting for Mood: okay Affect: congruent SI: denies HI: denies VH/AH: no overt signs Delusions: no overt delusional content Insight/judgment: impaired x 2. Memory/cog: alert, not oriented to place, month, year nor situation. pending MOCA/ ACL. Patient Appearance: Appropriate Patient Orientation: Person Level of Consciousness: Disoriented and Alert Patient Behavior: Talkative, Anxious, Fatigued, Distractible, Confused, Isolative and Good Eye Contact Mood Description: Constricted Affect Description: Constricted Patient Cognition Impaired: Yes Ability to Follow Directions: Fair Speech Pattern: Spontaneous Speech Memory Description: Remote Impaired, Recent Impaired and Working Impaired Diagnostics Vital Signs (24Hr): Vital Signs - 24 hr 09/24/24 19:52 09/25/24 08:00 Temperature 97.2 F 36.7 F L Pulse Rate 76 65 Respiratory Rate 18 14 Blood Pressure 169/94 H 114/67 Pulse Oximetry 99 95 Oxygen Delivery Method Room Air Room Air BMI result Body Mass Index 33.7 Labs 09/21/24 08:50 09/21/24 08:50 Medications Medications Current Medications Acetaminophen (Acetaminophen 325 Mg Tablet) 650 mg PO Q6H PRN PRN Reason: Headache/Pain, Scale 1-10 Last Admin: 09/24/24 22:37 Dose: 650 mg Al Hydroxide/Mg Hydroxide (Magnesium Hydrox/Alum Hydrox 30 Ml Oral.Susp) 30 ml PO Q6H PRN PRN Reason: Heartburn/Nausea Last Admin: 09/21/24 18:54 Dose: 30 ml Albuterol Sulfate (Albuterol Sulfate 90 Mcg 8 Gm Inhaler) 2 puff INHALE Q6H PRN PRN Reason: Wheezing Aspirin (Aspirin 81 Mg Tab.Chew) 81 mg PO DAILY [facility] Last Admin: 09/25/24 08:32 Dose: 81 mg Atorvastatin Calcium (Atorvastatin Calcium 80 Mg Tablet) 80 mg PO DAILY [facility] Last Admin: 09/25/24 08:32 Dose: 80 mg Donepezil HCl (Donepezil Hcl 5 Mg Tablet) 5 mg PO BEDTIME [facility] Last Admin: 09/24/24 20:12 Dose: 5 mg Doxazosin Mesylate (Doxazosin Mesylate 2 Mg Tablet) 2 mg PO BEDTIME [facility] Last Admin: 09/24/24 20:12 Dose: 2 mg Ezetimibe (Ezetimibe 10 Mg Tablet) 10 mg PO DAILY [facility] Last Admin: 09/25/24 08:32 Dose: 10 mg Fluticasone/Vilanterol (Fluticasone/Vilanterol 200/25 Blst.W.Dev) 1 puff INHALE RDAILY [facility] Last Admin: 09/25/24 09:39 Dose: 1 puff Folic Acid (Folic Acid 1 Mg Tablet) 1 mg PO DAILY [facility] Last Admin: 09/25/24 08:32 Dose: 1 mg Furosemide (Furosemide 40 Mg Tablet) 40 mg PO DAILY [facility]; Protocol Last Admin: 09/25/24 08:32 Dose: 40 mg Isosorbide Mononitrate (Isosorbide Mononitrate 30 Mg Tab.Er.24h) 30 mg PO DAILY [facility]; Protocol Last Admin: 09/25/24 08:32 Dose: 30 mg Levothyroxine Sodium (Levothyroxine Sodium 175 Mcg Tablet) 175 mcg PO DAILY@0600 [facility] Last Admin: 09/25/24 05:49 Dose: 175 mcg Lidocaine (Lidocaine 4 % Patch Adh..Patch) 1 patch TRANSDERMA DAILY PRN PRN Reason: back pain Last Admin: 09/23/24 14:05 Dose: 1 patch Magnesium Hydroxide (Milk Of Magnesia 30 Ml Oral.Susp) 30 ml PO DAILY PRN PRN Reason: Constipation Metoprolol Succinate (Metoprolol Succinate Er 25 Mg Tab.Er.24h) 25 mg PO DAILY [facility]; Protocol Last Admin: 09/25/24 08:31 Dose: 25 mg Montelukast Sodium (Montelukast Sodium 10 Mg Tablet) 10 mg PO BEDTIME [facility] Last Admin: 09/24/24 20:12 Dose: 10 mg Multivitamins/Vitamin C (Multivitamin Tablet) 1 tab PO DAILY [facility] Last Admin: 09/25/24 08:33 Dose: 1 tab Naproxen (Naproxen 500 Mg Tablet) 500 mg PO BID [facility] Last Admin: 09/25/24 08:32 Dose: 500 mg Olanzapine (Olanzapine 2.5 Mg Tablet) 2.5 mg PO BID PRN PRN Reason: agitation Last Admin: 09/24/24 15:46 Dose: 2.5 mg Omeprazole (Omeprazole 20 Mg Capsule.Dr) 20 mg PO DAILY@0630 [facility] Last Admin: 09/25/24 06:27 Dose: 20 mg Potassium Chloride (Potassium Chloride Er 10 Meq Tablet.Er) 10 meq PO DAILY [facility] Last Admin: 09/25/24 08:32 Dose: 10 meq Ranolazine (Ranolazine 500 Mg Tab.Er.12h) 500 mg PO BID [facility] Last Admin: 09/25/24 09:39 Dose: 500 mg Risperidone (Risperidone 0.25 Mg Tablet) 0.25 mg PO BID [facility] Last Admin: 09/25/24 08:32 Dose: 0.25 mg Thiamine HCl (Thiamine Hcl 100 Mg Tablet) 100 mg PO DAILY [facility] Last Admin: 09/25/24 08:32 Dose: 100 mg Tiotropium [place] (Tiotropium [place] 2.5 Mcg 1 Puff/2.5 Mcg Mist.Inhal) 2 puff INHALE RDAILY [facility] Last Admin: 09/25/24 08:35 Dose: 2 puff Trazodone HCl (Trazodone Hcl 25 Mg Halftab) 25 mg PO BEDTIME PRN PRN Reason: Insomnia Last Admin: 09/24/24 22:37 Dose: 25 mg Vitamin D (Cholecalciferol (Vitamin D3) 25 Mcg Tablet) 25 mcg PO DAILY [facility] Last Admin: 09/25/24 08:32 Dose: 25 mcg Allergies Allergies Allergy/AdvReac Type Severity Reaction Status Date / Time lisinopril Allergy Unknown Verified 09/16/24 17:09 lorazepam Allergy Unknown Verified 09/16/24 17:09 Penicillins Allergy Unknown Verified 09/16/24 17:09 tizanidine Allergy Unknown Verified 09/16/24 17:09 Assessment & Plan Assessment & Plan (1) Lewy body dementia: Status: Acute Code(s): G31.83 - Neurocognitive disorder with Lewy bodies; F02.80 - Dementia in other diseases classified elsewhere, unspecified severity, without behavioral disturbance, psychotic disturbance, mood disturbance, and anxiety Assessment and Plan: problems with orientation, recognition of family members, more severe amnestic type of impairment also raises question of other types of dementia such as AD. (2) Alcohol use disorder: Status: Acute Code(s): F10.90 - Alcohol use, unspecified, uncomplicated Assessment and Plan: this is relatively new issue. (3) Anxiety: Status: Acute Code(s): F41.9 - Anxiety disorder, unspecified Plan Mr. Garcia is a 74 year-old male with recent dx of lewy body dementia who drove to local police department and reported suicidal ideation with plan to crash into something. He was brought to [facility] ED. He presented with difficulty in orientation and denied any plan or intent to harm himself. Further collateral information from his , Velvet, reveled concern in terms of him wondering, driving (despite being told he is not able to do so due to memory/cognitive impairments) and increase alcohol intake in past 6 months. Pertienent labs completed in the ED include CBC without leukocytosis, no anemia, Plts 116. CMP without electrolyte abnormalities, BUN 17, Cr 1.09, creatinine clearance 67. BAL 51. Pending collateral information from Neurologist Dr. Salamanca of [facility] [phone] 09/19 pt not oriented to place, month,year nor situation. does not know how long he has been here nor why, showing more severe ability to retain new information. No overt psychosis noted so far. Pt does seem to be sensitive to effect of medications and receive trazodone and olanzapine which led to him sleeping most of the night and day. will lower dose of trazodone to 25mg po qhs prn, and olanzapine 2.5mg po BID for agitation. Obtained collateral information from . Pt does now have capacity to make medication decisions. It also appears cognitive/memory impairments to extend of needing 24/7 supervision. Discussed with , pt should not have access to car keys, not alcohol in the home. reports plan is for pt to return back home. 09/20 continue tx. can try aricept low dose. 09/21 start aricept 5mg po qhs. 09/24: Continue current management and treatment plan. 09/25: continue current management and treatment plan. Reason for continued inpatient stay Substantial Risk for: inability to function and rapid decompensation Time Spent With Patient Time: Total time managing care of this patient today ____ minutes.
[2024-09-25 20:00] VITALS: BP 137/84; PULSE 87; RESP 16; TEMP 36.8; O2SAT 98
[2024-09-25] MEDS: traZODone HCL 25 MG HALFTAB PO (20:18)
[2024-09-26] MEDS: Magnesium Hydrox/Alum Hydrox 30 ML ORAL.SUSP PO (06:36)
[2024-09-26 08:29] VITALS: BP 132/62; PULSE 60; RESP 15; TEMP 36.8; O2SAT 95
--- NOTE | 2024-09-26 08:32 | HO.PSYCHPN ---
Subjective Subjective Reason For Visit: F03.918 Unspecified dementia, unspecified severity Diagnostics Vital Signs (24Hr): Vital Signs - 24 hr 09/25/24 20:00 Temperature 98.2 F Pulse Rate 87 Respiratory Rate 16 Blood Pressure 137/84 Pulse Oximetry 98 Oxygen Delivery Method Room Air BMI result Body Mass Index 33.7 Labs 09/21/24 08:50 09/21/24 08:50 Medications Medications Current Medications Acetaminophen (Acetaminophen 325 Mg Tablet) 650 mg PO Q6H PRN PRN Reason: Headache/Pain, Scale 1-10 Last Admin: 09/24/24 22:37 Dose: 650 mg Al Hydroxide/Mg Hydroxide (Magnesium Hydrox/Alum Hydrox 30 Ml Oral.Susp) 30 ml PO Q6H PRN PRN Reason: Heartburn/Nausea Last Admin: 09/26/24 06:36 Dose: 30 ml Albuterol Sulfate (Albuterol Sulfate 90 Mcg 8 Gm Inhaler) 2 puff INHALE Q6H PRN PRN Reason: Wheezing Aspirin (Aspirin 81 Mg Tab.Chew) 81 mg PO DAILY [facility] Last Admin: 09/25/24 08:32 Dose: 81 mg Atorvastatin Calcium (Atorvastatin Calcium 80 Mg Tablet) 80 mg PO DAILY [facility] Last Admin: 09/25/24 08:32 Dose: 80 mg Donepezil HCl (Donepezil Hcl 5 Mg Tablet) 5 mg PO BEDTIME [facility] Last Admin: 09/25/24 20:19 Dose: 5 mg Doxazosin Mesylate (Doxazosin Mesylate 2 Mg Tablet) 2 mg PO BEDTIME [facility] Last Admin: 09/25/24 20:20 Dose: 2 mg Ezetimibe (Ezetimibe 10 Mg Tablet) 10 mg PO DAILY [facility] Last Admin: 09/25/24 08:32 Dose: 10 mg Fluticasone/Vilanterol (Fluticasone/Vilanterol 200/25 Blst.W.Dev) 1 puff INHALE RDAILY [facility] Last Admin: 09/25/24 09:39 Dose: 1 puff Folic Acid (Folic Acid 1 Mg Tablet) 1 mg PO DAILY [facility] Last Admin: 09/25/24 08:32 Dose: 1 mg Furosemide (Furosemide 40 Mg Tablet) 40 mg PO DAILY [facility]; Protocol Last Admin: 09/25/24 08:32 Dose: 40 mg Isosorbide Mononitrate (Isosorbide Mononitrate 30 Mg Tab.Er.24h) 30 mg PO DAILY [facility]; Protocol Last Admin: 09/25/24 08:32 Dose: 30 mg Levothyroxine Sodium (Levothyroxine Sodium 175 Mcg Tablet) 175 mcg PO DAILY@0600 [facility] Last Admin: 09/26/24 05:51 Dose: 175 mcg Lidocaine (Lidocaine 4 % Patch Adh..Patch) 1 patch TRANSDERMA DAILY PRN PRN Reason: back pain Last Admin: 09/23/24 14:05 Dose: 1 patch Magnesium Hydroxide (Milk Of Magnesia 30 Ml Oral.Susp) 30 ml PO DAILY PRN PRN Reason: Constipation Metoprolol Succinate (Metoprolol Succinate Er 25 Mg Tab.Er.24h) 25 mg PO DAILY [facility]; Protocol Last Admin: 09/25/24 08:31 Dose: 25 mg Montelukast Sodium (Montelukast Sodium 10 Mg Tablet) 10 mg PO BEDTIME [facility] Last Admin: 09/25/24 20:19 Dose: 10 mg Multivitamins/Vitamin C (Multivitamin Tablet) 1 tab PO DAILY [facility] Last Admin: 09/25/24 08:33 Dose: 1 tab Naproxen (Naproxen 500 Mg Tablet) 500 mg PO BID [facility] Last Admin: 09/25/24 20:17 Dose: 500 mg Olanzapine (Olanzapine 2.5 Mg Tablet) 2.5 mg PO BID PRN PRN Reason: agitation Last Admin: 09/24/24 15:46 Dose: 2.5 mg Omeprazole (Omeprazole 20 Mg Capsule.Dr) 20 mg PO DAILY@0630 [facility] Last Admin: 09/26/24 06:00 Dose: 20 mg Potassium Chloride (Potassium Chloride Er 10 Meq Tablet.Er) 10 meq PO DAILY [facility] Last Admin: 09/25/24 08:32 Dose: 10 meq Ranolazine (Ranolazine 500 Mg Tab.Er.12h) 500 mg PO BID [facility] Last Admin: 09/25/24 20:19 Dose: 500 mg Risperidone (Risperidone 0.25 Mg Tablet) 0.25 mg PO BID [facility] Last Admin: 09/25/24 20:18 Dose: 0.25 mg Thiamine HCl (Thiamine Hcl 100 Mg Tablet) 100 mg PO DAILY [facility] Last Admin: 09/25/24 08:32 Dose: 100 mg Tiotropium [place] (Tiotropium [place] 2.5 Mcg 1 Puff/2.5 Mcg Mist.Inhal) 2 puff INHALE RDAILY [facility] Last Admin: 09/25/24 08:35 Dose: 2 puff Trazodone HCl (Trazodone Hcl 25 Mg Halftab) 25 mg PO BEDTIME PRN PRN Reason: Insomnia Last Admin: 09/25/24 20:18 Dose: 25 mg Vitamin D (Cholecalciferol (Vitamin D3) 25 Mcg Tablet) 25 mcg PO DAILY [facility] Last Admin: 09/25/24 08:32 Dose: 25 mcg Allergies Allergies Allergy/AdvReac Type Severity Reaction Status Date / Time lisinopril Allergy Unknown Verified 09/16/24 17:09 lorazepam Allergy Unknown Verified 09/16/24 17:09 Penicillins Allergy Unknown Verified 09/16/24 17:09 tizanidine Allergy Unknown Verified 09/16/24 17:09 Assessment & Plan Assessment & Plan (1) Lewy body dementia: Status: Acute Code(s): G31.83 - Neurocognitive disorder with Lewy bodies; F02.80 - Dementia in other diseases classified elsewhere, unspecified severity, without behavioral disturbance, psychotic disturbance, mood disturbance, and anxiety Assessment and Plan: problems with orientation, recognition of family members, more severe amnestic type of impairment also raises question of other types of dementia such as AD. (2) Alcohol use disorder: Status: Acute Code(s): F10.90 - Alcohol use, unspecified, uncomplicated Assessment and Plan: this is relatively new issue. (3) Anxiety: Status: Acute Code(s): F41.9 - Anxiety disorder, unspecified Plan Mr. Garcia is a 74 year-old male with recent dx of lewy body dementia who drove to local police department and reported suicidal ideation with plan to crash into something. He was brought to [facility] ED. He presented with difficulty in orientation and denied any plan or intent to harm himself. Further collateral information from his , Velvet, reveled concern in terms of him wondering, driving (despite being told he is not able to do so due to memory/cognitive impairments) and increase alcohol intake in past 6 months. Pertienent labs completed in the ED include CBC without leukocytosis, no anemia, Plts 116. CMP without electrolyte abnormalities, BUN 17, Cr 1.09, creatinine clearance 67. BAL 51. Pending collateral information from Neurologist Dr. Saalmanca of [facility] [phone] 09/19 pt not oriented to place, month,year nor situation. does not know how long he has been here nor why, showing more severe ability to retain new information. No overt psychosis noted so far. Pt does seem to be sensitive to effect of medications and receive trazodone and olanzapine which led to him sleeping most of the night and day. will lower dose of trazodone to 25mg po qhs prn, and olanzapine 2.5mg po BID for agitation. Obtained collateral information from . Pt does now have capacity to make medication decisions. It also appears cognitive/memory impairments to extend of needing 24/7 supervision. Discussed with , pt should not have access to car keys, not alcohol in the home. reports plan is for pt to return back home. 09/20 continue tx. can try aricept low dose. 09/21 start aricept 5mg po qhs. 09/24: Continue current management and treatment plan. 09/25: continue current management and treatment plan. Time Spent With Patient Time: Total time managing care of this patient today ____ minutes.
[2024-09-26] MEDS: Tiotropium Bromide 2.5 mcg 1 PUFF/2.5 MCG MIST.INHAL 2 PUFF INHALE (08:33)
[2024-09-26] MEDS: Fluticasone/Vilanterol 200/25 BLST.W.DEV 1 PUFF INHALE (08:34)
[2024-09-26] MEDS: Metoprolol Succinate ER 25 MG TAB.ER.24H PO (08:35)
[2024-09-26] MEDS: Potassium Chloride ER 10 MEQ TABLET.ER PO (08:37)
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
== END 2024-09-26 10:20 | disposition home or self-care (01) | DRG 57 ==
PROVIDERS: Nurse Practitioner Psychiatric/Mental Health; Social Worker; Admitting Provider Psychiatry & Neurology Psychiatry; Visit Provider Psychiatry & Neurology Psychiatry
DX: G31.83 Neurocognitive disorder with Lewy bodies (principal); R45.851 Suicidal ideations; F41.9 Anxiety disorder, unspecified; I25.10 Atherosclerotic heart disease of native coronary artery without angina pectoris; J44.9 Chronic obstructive pulmonary disease, unspecified; E03.9 Hypothyroidism, unspecified; F10.90 Alcohol use, unspecified, uncomplicated; F02.80 Dementia in other diseases classified elsewhere, unspecified severity, without behavioral disturbance, psychotic disturbance, mood disturbance, and anxiety; Z87.891 Personal history of nicotine dependence; Z79.51 Long term (current) use of inhaled steroids; Z79.82 Long term (current) use of aspirin; Z79.890 Hormone replacement therapy; Z79.899 Other long term (current) drug therapy
CPT/HCPCS: 36415; 80053; 80061; 83036; 84439; 84443; 85025

== ENCOUNTER → 2024-09-16 15:59 | Outpatient (BNV) | payer OTHER, SELFPAY | PROVIDERS: Admitting Provider Psychiatry & Neurology Psychiatry; Visit Provider Clinical Nurse Specialist Psychiatric/Mental Health, Adult | DX: G31.83 Neurocognitive disorder with Lewy bodies (principal); F02.80 Dementia in other diseases classified elsewhere, unspecified severity, without behavioral disturbance, psychotic disturbance, mood disturbance, and anxiety; F10.90 Alcohol use, unspecified, uncomplicated; F41.9 Anxiety disorder, unspecified | CPT/HCPCS: 90792; 99231; 99232; 99239 ==

== ENCOUNTER → 2024-09-16 15:59 | Outpatient (BNV) | payer MEDICARE, SELFPAY | PROVIDERS: Admitting Provider Psychiatry & Neurology Psychiatry; Visit Provider Student in an Organized Health Care Education/Training Program | DX: Z00.8 Encounter for other general examination (principal) | CPT/HCPCS: 99222 ==